=== PATIENT | female | born 1995 | race Hispanic/Latino ===

== ENCOUNTER 2019-01-14 23:59 | Emergency (ER) | payer OTHER | END 2019-01-15 00:54 | disposition home or self-care (01) | LOC: EDH 23:59 | DX: S62.336A Displaced fracture of neck of fifth metacarpal bone, right hand, initial encounter for closed fracture (principal); W22.01XA Walked into wall, initial encounter; Y93.89 Activity, other specified; Y92.098 Other place in other non-institutional residence as the place of occurrence of the external cause; Y99.8 Other external cause status | CPT/HCPCS: 29125; 73130 ==

== ENCOUNTER 2022-09-05 19:12 | Emergency (ER) | payer OTHER ==
[~2022-09-05] VITALS: Ht 149.9 cm; Wt 55.8 kg
[2022-09-05 19:13] VITALS: BP 161/106
[2022-09-05 20:00] LABS: HEMATOCRIT 44.3 % (36-48); MEAN CORPUSCULAR HEMOGLOBIN 29.8 pg (27.0-33.0); MEAN CORPUSCULAR HGB CONC 34.1 g/dL (32.0-36.0); MEAN CORPUSCULAR VOLUME 87.5 fL (79-99); PLATELET COUNT (AUTO) 275 K/uL (130-400); RED BLOOD CELL COUNT(AUTO) 5.06 MIL/uL (4.00-5.50); RED CELL DISTRIBUTION WIDTH 12.1 % (11.0-15.5); WHITE BLOOD COUNT (AUTO) 9.7 K/uL (4.8-10.8)
[2022-09-05 20:11] LABS: BASOPHILS % (AUTO) 0.3 % (0.0-5.0); LYMPHOCYTES % (AUTO) 23.9 % (21.0-51.0); MONOCYTES % (AUTO) 6.5 % (3.0-13.0); NEUTROPHILS % (AUTO) 67.9 % (40.0-77.0)
[2022-09-05 20:12] LABS: CREATININE 0.7 mg/dL (0.5-1.5); POTASSIUM 3.9 mmol/L (3.5-5.1)
[2022-09-05 20:17] LABS: ALBUMIN 3.9 g/dL (3.5-5.0); TOTAL PROTEIN, SERUM 7.7 g/dL (6.0-8.3)
[2022-09-05] MEDS ORDERED: AMOX500C2 PO (20:57)
[2022-09-05] MEDS: KETOROLAC 15MG/ML VIAL (15MG/ML) IM ONE (20:59)
== END 2022-09-05 21:02 | disposition home or self-care (01) ==
LOC: EDH 19:12
DX: J02.0 Streptococcal pharyngitis (principal); R51.9 Headache, unspecified; Z20.822 Contact with and (suspected) exposure to COVID-19
CPT/HCPCS: 99283; 87635; 80053; 85025; 87880; 87804 ×2; 36415; 96372; C9803; J1885